=== PATIENT | male | born 1945 | race Caucasian/White ===

== ENCOUNTER → 2023-11-04 16:05 | Outpatient (REF) | payer MEDICARE, SELFPAY | LOC: RCS 16:05 | PROVIDERS: ATTENDING PHYSICIAN Internal Medicine | DX: R01.1 Cardiac murmur, unspecified (principal) | CPT/HCPCS: 93306 ==

== ENCOUNTER → 2024-03-24 07:52 | Outpatient (REF) | payer MEDICARE, SELFPAY | LOC: RAD 07:52 | PROVIDERS: ATTENDING PHYSICIAN Nurse Practitioner Adult Health | DX: R19.00 Intra-abdominal and pelvic swelling, mass and lump, unspecified site (principal); R19.4 Change in bowel habit | CPT/HCPCS: 74177; Q9967 ==